=== PATIENT | female | born 1970 | race Caucasian/White ===

== ENCOUNTER 2021-01-03 22:50 | Inpatient (IN) | payer OTHER, SELFPAY ==
[~2021-01-03] VITALS: Ht 157.5 cm; Wt 72.6 kg
[~2021-01-03 22:50] MED LIST: MULT-514
[2021-01-03 22:57] VITALS: BP 127/83
--- NOTE | 2021-01-03 23:17 | NUR ---
50 Y/O FEMALE CAME TO THE ED C/O ABDOMINAL PAIN. PT STATES, " I HAVE LT ABDOMINAL PAIN (GUARDING LT ABDOMINAL AREA) OF 8/10 THAT STARTED 1330H TODAY. I HAVE A LITTLE BIT OF NAUSEA TOO." DENIES ANY CONSTIPATION, VOMITTING AND DIARRHEA. BOWEL SOUNDS ACTIVE IN ALL 4 QUADRANTS, SOFT, NON-TENDER ABDOMEN UPON PALPATION. NKA PMH: DM LAST BM: 01/03/21 MENOPAUSE
[2021-01-03] MEDS ORDERED: HYDROmorphone PFS 2 MG/ML SYR IVP ONE (23:35)
[2021-01-03] MEDS ORDERED: NACL 0.9% 1,000 ML IV SCH (23:35)
[2021-01-03] MEDS ORDERED: ONDANSETRON 4 MG/2 ML VIAL IVP ONE (23:35)
[2021-01-03 23:46] LABS: BASOPHILS % (AUTO) 0.4 % (0.0-2.0); EOSINOPHILS # (AUTO) 0.1 K/uL (0-0.4); HEMATOCRIT 37.4 % (36-48); HEMOGLOBIN 12.9 g/dL (12.0-16.0); LYMPHOCYTES # (AUTO) 2.5 K/uL (2.5-16.5); MEAN CORPUSCULAR HEMOGLOBIN 30 pg (27-31); MEAN CORPUSCULAR HGB CONC 35 g/dL (33-37); MEAN CORPUSCULAR VOLUME 86.8 fL (80-94); MONOCYTES # (AUTO) 0.3 K/uL (0.8-1.0); MONOCYTES % (AUTO) 4.2 % (1.7-9.3); NEUTROPHILS # (AUTO) 4.1 K/uL (1.8-7.7); NEUTROPHILS % (AUTO) 58.4 % (42.2-75.2); PLATELET COUNT (AUTO) 307 K/uL (140-450); RED CELL DISTRIBUTION WIDTH 13.2 % (11.6-13.7); WHITE BLOOD COUNT (AUTO) 7.1 K/uL (4.8-10.8)
[2021-01-03 23:47] LABS: APPEARANCE,URINE CLEAR (CLEAR); BILIRUBIN,URINE NEGATIVE (NEGATIVE); BLOOD, URINE NEGATIVE (NEGATIVE); COLOR,URINE YELLOW (YELLOW); LEUKOCYTE ESTERASE ,URINE NEGATIVE (NEGATIVE); NITRITE, URINE NEGATIVE (NEGATIVE); UGLUCOSE NEGATIVE (NEGATIVE)
[2021-01-04 00:04] LABS: ANION GAP 20.2 (8-16); CARBON DIOXIDE 23.8 mmol/L (21-32); CREATININE 0.7 mg/dL (0.6-1.3)
[2021-01-04 00:10] LABS: ALBUMIN 4.3 g/dL (3.4-5.0); TOTAL BILIRUBIN 0.3 mg/dL (0.0-1.0)
--- NOTE | 2021-01-04 00:21 | NUR ---
RECEIVED A CALL FROM PATRICK LEWIS FOR CRITICAL LAB VALUE: LACTIC ACID 2.7 ERMD MADE AWARE, ORDERS RECEIVED.
--- NOTE | 2021-01-04 00:21 | NUR ---
observed pt decreased saturations as low as 74% s/p narcotic administration. placed on 3lpm n/c and satting well at 97%
--- NOTE | 2021-01-04 00:49 | NUR ---
PT TAKEN TO CT VIA [facility].
[2021-01-04] MEDS ORDERED: NACL 0.9% 1,000 ML IV ONE ×2 (00:55→02:25)
--- NOTE | 2021-01-04 02:30 | NUR ---
USED HOSPITALIST NOCTURNIST PHYSICIAN PHONE TO TALK TO PATIENT; CASE DISCUSSED ABOUT RISK, BENEFITS OF GETTING ADMITTED TO THE HOSPITAL HOSPITALIST NOCTURNIST PHYSICIAN: ALEXIA [id number]
[2021-01-04] MEDS ORDERED: PIPERACILLIN/TAZOBACTAM 3.375 GM in DEXTROSE 5% 50 ML IV ONE (02:35)
--- NOTE | 2021-01-04 02:39 | NUR ---
collected lissa swab and sent to lab, handed to cpt shannan
[2021-01-04] MEDS ORDERED: PIPERACILLIN/TAZOBACTAM 3.375 GM VIAL IV ONE (02:52)
[2021-01-04] MEDS ORDERED: METF1000 PO (02:55)
[2021-01-04] MEDS ORDERED: BENA20TA PO (02:55)
[2021-01-04] MEDS ORDERED: DEXT 5% / NACL 0.9% 1,000 ML IV SCH (03:00)
[2021-01-04] MEDS ORDERED: KETOROLAC 30 MG/ML VIAL IVP PRN (03:00)
--- NOTE | 2021-01-04 03:40 | NUR ---
Patient will be admitted to care of DR. ASHFORD. Admited to [facility]. Will go to room 112A. Belongings list completed. Report to BARRY SOW.
[2021-01-04 04:00] VITALS: BP 108/68
--- NOTE | 2021-01-04 04:00 | NUR ---
REPORT GIVEN BY ER NURSE. BROUGHT PT TO MST UNIT VIA WHEELCHAIR. AWAKE, ALERT ORIENTED X4. NO DISTRESS. HAD X1 EPISODE OF VOMITING. DR ROBLEDO COFFEE SHOP MANAGER ORDERED ZOFRAN 4 MG IVP, ORDER NOTED AND CARRIED OUT. INSTRUCTED PT TO BE NPO. MRSA SCREENING DONE. SAFETY MEASURES IN PLACE. CALL LIGHT WITHIN REACH.
[2021-01-04] MEDS ORDERED: ONDANSETRON 4 MG/2 ML VIAL IVP PRN (05:05)
[2021-01-04] MEDS ORDERED: ONDANSETRON 4 MG/2 ML VIAL ONE (05:07)
--- NOTE | 2021-01-04 07:30 | NUR ---
ENDORSED TO AM NURSE FOR CONTINUITY OF CARE.
--- NOTE | 2021-01-04 07:35 | NUR ---
RECEIVED REPORT FROM VAULT ATTENDANT NURSE. PATIENT IS SLEEPING AROUSABLE BY NAME, RESPIRATION EVEN UNLABORED ON ROOM AIR NO DISTRESS NOTED. DENIES PAIN AT THIS MOMENT. ABDOMEN SOFT AND NON-TENDER. SKIN IS WARM AND DRY. IV PATENT AND INTACT. PLAN OF CARE WAS DISCUSSED. ALL SAFETY MEASURES IN PLACE. BED IS AT LOW POSITION. CALL LIGHT WITHIN REACH. WILL CONTINUE TO MONITOR
[2021-01-04 08:00] VITALS: BP 133/71
[2021-01-04] MEDS: DEXT 5% /NACL 0.9% 1,000 ML IV SCH ×3 (08:35→21:59)
[2021-01-04] MEDS ORDERED: MORPHINE SULFATE 2 MG/ML SYR IVP PRN (08:35)
[2021-01-04] MEDS ORDERED: DOCUSATE SODIUM 100 MG GELCAP PO PRN (08:35)
[2021-01-04] MEDS ORDERED: guaiFENesin DM 200/20 MG-10 ML 10 ML UDC PO PRN (08:35)
[2021-01-04] MEDS ORDERED: POTASSIUM CHLORIDE 10 MEQ TABER PO PRN (08:35)
[2021-01-04] MEDS ORDERED: ONDANSETRON 4 MG/2 ML VIAL IM/IVP PRN (08:35)
[2021-01-04] MEDS ORDERED: ACETAMINOPHEN 325 MG TAB PO PRN (08:35)
[2021-01-04] MEDS ORDERED: HYDROcodone/APAP 7.5/325 MG 1 TAB PO PRN (08:35)
--- NOTE | 2021-01-04 08:53 | NUR ---
PATIENT HAS BEEN SCREENED AND CATEGORIZED MODERATE NUTRITION RISK. PATIENT WILL BE SEEN WITHIN 3-5 DAYS OF ADMISSION. 01/06/21 01/08/[address]
[2021-01-04] MEDS: PANTOPRAZOLE 40 MG INJ VIAL IVP SCH (09:29)
--- NOTE | 2021-01-04 09:45 | NUR ---
ALL SCHEDULED MEDS WERE GIVEN PER ORDER. WILL CONTINUE TO MONITOR
[2021-01-04 09:48] LABS: BARBITURATE, URINE NEGATIVE ng/ml (NEG <=200); BENZODIAZEPINE, URINE NEGATIVE ng/mL (NEG <=200); CANNABINOID, URINE NEGATIVE ng/mL (NEG <=50); COCAINE, URINE NEGATIVE ng/mL (NEG <=300); OPIATE, URINE POSITIVE ng/mL (NEG <=2000); PHENCYCLIDINE SCREEN,URINE NEGATIVE ng/mL (NEG <=25)
--- NOTE | 2021-01-04 10:00 | NUR ---
INSERT NGT PER MD ORDER. PT TOLERATING IT WELL. AWAITING FOR XRAY RESULTS FOR CONFIRMATION.
[2021-01-04 10:26] LABS: FREE T4 (FREE THYROXINE) 0.97 ng/dL (0.76-1.46); PHOSPHORUS 4.2 mg/dL (2.5-4.9); THYROID STIMULATING HORMONE 3.29 uIU/mL (0.34-3.74)
--- NOTE | 2021-01-04 11:00 | NUR ---
PATIENT COMPLAINED OF FEELING NAUSEOUS, PRN ZOFRAN GIVEN PER ORDER. WILL CONTINUE TO MONITOR
--- NOTE | 2021-01-04 12:10 | NUR ---
DC PLANNIN YRS OLD FEMALE PATIENT WAS ADMITTED FROM HOME WITH A DX OF SMALL BOWEL OBSTRUCTION. PT HAS A HX OF DM. CXR SHOWED BORDERLINE CARDIOMEGALY WITH BIBASILAR SUBSEGMENTAL ATELECTASIS/INFILTRATES. CT ABD/PELVIS SHOWED MULTIPLE MILDY GAS DILATED LOOPS OF SMALL BOWEL. ORDERED NGT TO BE PLACED CONSULTED WITH SURGEON DR MACHADO ORDERED SBFT DC PLAN AWAITING FOR RESULT OF SBFT. CM TO FOLLOW CALLED YARI JOSEPH AT [phone] LEFT A MESSAGE REGARDING NOTIFICATION OF ADMISSION AND PLAN FOR POSSIBLE SURGERY. CM TO FOLLOW Addendum: 01/04/21 at 1356 by Micaela Aguilera RN DC PLANNING: CALLED PAT'S INSURANCE YARI SPOKE WITH JAKE OWENS UPDATED PT'S CLINICAL AND THE PLAN. PER JAKE WILL SUBMIT TO THE DAIRY FEED WORKER AND WILL CALL US. REQUESTED THE AUTH FOR THE STAY, SHE STATED SHE IS UNABLE TO PROVIDE THE AUTH FOR NOW BUT SHE PROVIDE THE REFERENCE # [id number] GRACIELA TO FOLLOW
--- NOTE | 2021-01-04 14:52 | NUR ---
CHECKED ON PATIENT. PATIENT SLEEPING RESPIRATION EVEN UNLABORED ON ROOM AIR. NO DISTRESS NOTED. WILL CONTINUE TO MONITOR.
[2021-01-04 16:00] VITALS: BP 123/75
--- NOTE | 2021-01-04 17:04 | NUR ---
CHECKED ON PATIENT. PATIENT SLEEPING RESPIRATION EVEN UNLABORED ON ROOM AIR. NO DISTRESS NOTED. WILL CONTINUE TO MONITOR.
--- NOTE | 2021-01-04 18:05 | NUR ---
PER DR. MACHADO ITS OKAY TO REMOVE NGT
--- NOTE | 2021-01-04 19:11 | NUR ---
ENDORSED PATIENT TO DAY SHIFT NURSE AT BEDSIDE FOR CONTINUITY OF CARE
--- NOTE | 2021-01-04 19:12 | NUR ---
RECEIVED BEDSIDE ENDORSEMENT FROM AM SHIFT RN. PATIENT IS AAOX4, ON ROOM AIR, SAUDI ARABIAN SPEAKING, AMBULATORY, NO C/O PAIN, IVF INFUSING, SAFETY MEASURES IN PLACE, PLAN OF CARE DISCUSSED, CALL LIGHT WITHIN REACH.
[2021-01-04 20:00] VITALS: BP 134/73
[2021-01-04] MEDS ORDERED: ZOLPIDEM 5 MG TAB PO PRN (21:00)
--- NOTE | 2021-01-04 22:17 | NUR ---
IVF FINISHED, HANGED A NEW BAG OF D5 NS 1L AT 110 ML/HR ORDERED, IV SITE INTACT, PATENT. WILL CONTINUE TO MONITOR, CALL LIGHT WITHIN REACH.
--- NOTE | 2021-01-05 | NUR ---
PATIENT IS ASLEEP, NOTED CHEST RISE, CALL LIGHT WITHIN REACH.
--- NOTE | 2021-01-05 03:09 | NUR ---
PATIENT IS NOT IN DISTRESS, SLEEPING, RESPIRATION EVEN AND UNLABORED, WILL CONTINUE TO MONITOR, CALL LIGHT WITHIN REACH.
[2021-01-05 04:00] VITALS: BP 123/69
--- NOTE | 2021-01-05 04:10 | NUR ---
V/S TAKEN AND RECORDED, WILL CONTINUE TO MONITOR, CALL LIGHT WITHIN REACH.
[2021-01-05 06:56] LABS: BASOPHILS % (AUTO) 0.3 % (0.0-2.0); EOSINOPHILS # (AUTO) 0.1 K/uL (0-0.4); EOSINOPHILS % (AUTO) 0.8 % (0.0-4.0); HEMATOCRIT 33.7 % (36-48); HEMOGLOBIN 11.6 g/dL (12.0-16.0); LYMPHOCYTES # (AUTO) 3.2 K/uL (2.5-16.5); LYMPHOCYTES % (AUTO) 42.1 % (20.5-51.1); MEAN CORPUSCULAR HEMOGLOBIN 30 pg (27-31); MEAN CORPUSCULAR HGB CONC 35 g/dL (33-37); MEAN CORPUSCULAR VOLUME 87.1 fL (80-94); MONOCYTES # (AUTO) 0.4 K/uL (0.8-1.0); MONOCYTES % (AUTO) 5.4 % (1.7-9.3); NEUTROPHILS # (AUTO) 3.9 K/uL (1.8-7.7); NEUTROPHILS % (AUTO) 51.4 % (42.2-75.2); PLATELET COUNT (AUTO) 276 K/uL (140-450); RED BLOOD CELL COUNT(AUTO) 3.86 MIL/uL (4.20-5.40); RED CELL DISTRIBUTION WIDTH 13.3 % (11.6-13.7); WHITE BLOOD COUNT (AUTO) 7.5 K/uL (4.8-10.8)
[2021-01-05 06:57] LABS: ANION GAP 15.3 (8-16); CARBON DIOXIDE 26.1 mmol/L (21-32); CREATININE 0.6 mg/dL (0.6-1.3); POTASSIUM 3.4 mmol/L (3.5-5.1)
--- NOTE | 2021-01-05 07:15 | NUR ---
REC'D REPORT FROM BRANDING MACHINE OPERATOR NURSE, PT A/OX4 AMHARIC SPEAKING, RAFilemon LeyAC 20G INFUSING D5/NS AT 110ML HOUR. CALL LIGHT WITHIN REACH.
--- NOTE | 2021-01-05 07:25 | NUR ---
PATIENT STABLE, NO DISTRESS, NO ACUTE EVENTS OVERNIGHT, KEPT COMFORTABLE, CALL LIGHT WITHIN REACH, ALL NEEDS ATTENDED, BEDSIDE ENDORSEMENT GIVEN TO AM SHIFT RN.
[2021-01-05] MEDS: PANTOPRAZOLE 40 MG INJ VIAL IVP SCH (09:10)
[2021-01-05] MEDS: DEXT 5% /NACL 0.9% 1,000 ML IV SCH (09:12)
--- NOTE | 2021-01-05 09:13 | NUR ---
ADMINISTERED ANTIBIOTIC AND SCHEDULED MEDICATIONS PER MD ORDER. IV SITE PATENT, MOA AND SIDE EFFECTS DISCUSSED WITH PT WHO VERBALIZED UNDERSTANDING. PT TOLERATED PROCEDURE WELL
[2021-01-05 12:07] LABS: T4 (THYROXINE) 8.5 ug/dL (4.5-12.0)
--- NOTE | 2021-01-05 12:58 | NUR ---
ADMINISTERED POTASSIUM PER MD ORDER. MOA AND SIDE EFFECTS DISCUSSED WITH PT WHO VERBALIZED UNDERSTANDING.
--- NOTE | 2021-01-05 14:08 | NUR ---
PT UP ON CHAIR, NO SIGN OF DISTRESS, DENIES PAIN
--- NOTE | 2021-01-05 16:28 | NUR ---
PT IV BECAME INFILTRATED, STARTED NEW IV ACCESS ON L.FOREARM 22G., PT TOLERATED IV CATHETER INSERTION WELL, ONE ATTEMPT
--- NOTE | 2021-01-05 19:04 | NUR ---
ENDORSED TO CARTRIDGE BELT PUNCHER NURSE, PT RA. NO SIGN OF DISTRESS
--- NOTE | 2021-01-05 19:05 | NUR ---
RECEIVED BEDSIDE ENDORSEMENT FROM AM SHIFT RN. PATIENT IS AAOX4, ON ROOM AIR, AMBULATORY, SKIN INTACT, IVF INFUSING, DENIES PAIN AT THIS TIME, SAFETY MEASURES IN PLACE, PLAN OF CARE DISCUSSED, WILL CONTINUE TO MONITOR, CALL LIGHT WITHIN REACH.
[2021-01-05 20:00] VITALS: BP 114/70
[2021-01-05 20:47] VITALS: BP 114/70
--- NOTE | 2021-01-05 21:00 | NUR ---
PATIENT HAS NO EPISODE OF VOMITING AFTER EATING REG FOOD FOR DINNER, NO STOMACH UPSET PER PATIENT, HAD 2 BOWEL MOVEMENT, SOFT IN CONSISTENCY. WILL D/C PATIENT ORDERED.
--- NOTE | 2021-01-05 21:15 | NUR ---
DISCHARGED INSTRUCTIONS EXPLAINED TO PATIENT, VERBALIZED UNDERSTANDING, PATIENT IS STABLE, NO DISTRESS, ON ROOM AIR, DENIES PAIN, NO VOMITING. D/C FORMS SIGNED BY PT, PT IS AAOX4, IS ON THE WAY TO [employer]COAL BURNER THE PT. ALL BELONGINGS GIVEN TO PATIENT. FLU VACCINE NOT IN SEASON, & PNA VACCINE REFUSED. IV CATH REMOVED AND DRESSED W/DRY DRESSING, NAME BAND REMOVED. PT REQUESTED A DOCTORS NOTE FOR HER WORK, WILL ENDORSE IN AM CHARGE NURSE. PT'S PHONE NUMBER IS [phone]. PT'S VITALS ARE 114/70, 66, 17, 97.4, 98% RA. AWAITING FOR PT'S RIDE.
--- NOTE | 2021-01-05 21:50 | NUR ---
PT'S FAMILY IS HERE TO PERSONAL COMPUTER SPECIALIST PT. ACCOMPANIED PATIENT OUTSIDE THE BUILDING, AMBULATORY, STABLE.
== END 2021-01-05 21:50 | disposition home or self-care (01) | DRG 389 ==
LOC: MED 22:50 → MMU 01-04 03:05 → MTU 01-04 03:36
PROVIDERS: ADMIT Family Medicine; ATTEND Family Medicine
PROC: 0D9670Z Drainage of Stomach with Drainage Device, Via Natural or Artificial Opening (ICD-10-PCS; principal; 2021-01-04)
DX: K56.609 Unspecified intestinal obstruction, unspecified as to partial versus complete obstruction (principal); E87.2 Acidosis; K56.7 Ileus, unspecified; E11.9 Type 2 diabetes mellitus without complications; I10 Essential (primary) hypertension; Z20.822 Contact with and (suspected) exposure to COVID-19; K59.00 Constipation, unspecified; K76.0 Fatty (change of) liver, not elsewhere classified; Z79.84 Long term (current) use of oral hypoglycemic drugs; Z79.899 Other long term (current) drug therapy
CPT/HCPCS: 36415; 71045; 74250; 80048; 80053; 80305; 81003; 82150; 83036; 83605; 83690; 83735; 83880; 84100; 84436; 84439; 84443; 84479; 84484; 85025; 85610; 85730; 87040; 87081; 96361; 96365; 96375; 99291; C9113; J0696; J1170; J2405; J2543; J7060; Q9967